=== PATIENT | female | born 1955 | race Caucasian/White ===

== ENCOUNTER → 2016-12-23 | Outpatient (CLI) | payer OTHER | LOC: FIMAGING 11:49 | PROVIDERS: ATTEND Internal Medicine | DX: Z12.31 Encounter for screening mammogram for malignant neoplasm of breast (principal) | CPT/HCPCS: G0202 ==

== ENCOUNTER → 2017-07-02 | Outpatient (CLI) | payer OTHER | LOC: FIMAGING 08:57 | PROVIDERS: ATTEND Physician Assistant | DX: R06.02 Shortness of breath (principal); R06.89 Other abnormalities of breathing; R79.81 Abnormal blood-gas level; Z87.891 Personal history of nicotine dependence ==